=== PATIENT | female | born 1980 | race African-American/Black ===

== ENCOUNTER 2016-08-07 13:16 | Emergency (ER) | payer OTHER ==
[~2016-08-07] VITALS: Ht 180.3 cm; Wt 105.0 kg
[~2016-08-07 13:16] MED LIST: HYDR25TA5 PO; MULT-120 PO
[2016-08-07 13:18] VITALS: BP 168/105; PULSE 82; RESP 18; TEMP 97.7; O2SAT 96
--- NOTE | 2016-08-07 14:33 | PD ---
HPI Chief Complaint: Cold / Flu Symptoms Time Seen by Provider: 14:31 Travel History International Travel<30 days: No Contact w/Intl Traveler<30days: No Traveled to known affect area: No History of Present Illness HPI Patient is a 36-year-old female presenting to the emergency department for evaluation of cough, chest congestion, fevers. Some started on Friday. Her max temp was 103 yesterday. Patient has lupus, she recently discontinued medication for that, she is unsure of the name of it. She has no other complaints at this time, no abdominal pain, nausea, no vomiting, no headaches. PFSH Past Medical History Autoimmune Disease: Yes (LUPUS) Cancer: No Cardiovascular Problems: No COPD: Yes ("CHRONIC BRONCHITIS") Cerebrovascular Accident: No Diminished Hearing: No Endocrine: No Genitourinary: No Immune Disorder: Yes Musculoskeletal: No Neurologic: No Psychiatric: No Reproductive: Yes (OVARIAN POLYCYSTIC SYNDROME) Respiratory: Yes ("SEVERE BRONCHITIS") Migraines: No Seizures: No ?: Not Past Surgical History Abdominal Surgery: No Cardiac Surgery: No Ear Surgery: No Endocrine Surgery: No Eye Surgery: No Genitourinary Surgery: No Gynecologic Surgery: No Oral Surgery: Yes (TONSILLECTOMY) Thoracic Surgery: No Tonsillectomy: Yes Social History Alcohol Use: Yes (COUPLE TIMES PER WEEK) Tobacco Use: No Substance Use: No Allergies-Medications (Allergen,Severity, Reaction): Coded Allergies: Latex (Verified Adverse Reaction, Intermediate, HIVES, 08/07/16) Reported Meds & Prescriptions Reported Meds & Active Scripts Active Azithromycin 250 Mg Tab 250 Mg PO DIRECTED Take 2 tabs (500 mg) on day 1 then 1 tab daily x 4 days. Tessalon Perles (Benzonatate) 100 Mg Cap 200 Mg PO TID PRN 5 Days Hydrochlorothiazide 25 Mg Tab 25 Mg PO DAILY Reported Multivitamin Women (Multiple Vitamins W/ Minerals) 1 Tab Tab 1 Tab PO DAILY Review of Systems Except as stated in HPI: all other systems reviewed are Neg General / Constitutional: Positive: Fever, Chills HENT: Positive: Congestion Cardiovascular: No: Chest Pain or Discomfort Respiratory: Positive: Cough, No: Shortness of Breath, Wheezing Gastrointestinal: No: Nausea, Vomiting, Abdominal Pain Musculoskeletal: Positive: Myalgias Physical Exam Narrative GENERAL: Well-nourished, well-developed patient. SKIN: Warm and dry. HEAD: Normocephalic. EYES: No scleral icterus. No injection or drainage. ENT: Mucosa pink and moist. No erythema or exudates. No uvular edema. No uvular , palatal, or tonsillar deviation. Airway patent. Nasal turbinates appear normal without nasal blood, purulent drainage or septal hematoma. Cobblestone appearance to posterior pharynx. NECK: Supple, trachea midline. No JVD or lymphadenopathy. CARDIOVASCULAR: Regular rate and rhythm without murmurs, gallops, or rubs. RESPIRATORY: Breath sounds equal bilaterally, diminished in bases. No accessory muscle use. GASTROINTESTINAL: Abdomen soft, non-tender, nondistended. MUSCULOSKELETAL: No cyanosis, or edema. BACK: Nontender without obvious deformity. No CVA tenderness. Data Data Last Documented VS Vital Signs Date Time Temp Pulse Resp B/P Pulse Ox O2 Delivery O2 Flow Rate FiO2 08/07/16 13:18 97.7 82 18 168/105 96 Room Air Orders Chest, Pa & Lat (08/07/16 ) Influenzae A/B Antigen (08/07/16 14:31) MDM Medical Decision Making Medical Screen Exam Complete: Yes Emergency Medical Condition: Yes Interpretation(s) Vital Signs Date Time Temp Pulse Resp B/P Pulse Ox O2 Delivery O2 Flow Rate FiO2 08/07/16 13:18 97.7 82 18 168/105 96 Room Air Differential Diagnosis Bronchitis versus pneumonia versus viral URI versus other Narrative Course Patient is a 36-year-old female presenting to emergency evaluation of cough and fevers. Patient recently stopped medication for lupus. Patient is currently afebrile but due to possible immunocompromise state, a chest x-ray was ordered. Chest x-ray is negative for acute disease. Influenza is negative. Patient was encouraged to continue with symptomatic management. Patient was advised that it may take 2-3 more days for symptoms to resolve, she was encouraged to follow-up with her primary doctor or return to emergency department for any new or worsening symptoms. She will be given a prescription for a backup antibiotic however she was encouraged to continue watchful waiting. She was encouraged to complete full course of antibiotic if she did start. She verbalized understanding of discharge instructions. Patient is stable for discharge. Diagnosis Primary Impression: Upper respiratory infection Qualified Code: J06.9 - Viral upper respiratory tract infection Referrals: Primary Care Physician Patient Instructions: General Instructions, Upper Respiratory Infection (ED) Departure Forms: Tests/Procedures, Work Release Enter return to work date: Aug 08, 2016 Additional Instructions: Follow up with her primary doctor Continue with symptomatic management Take aoul-nek-xmiabph acetaminophen or ibuprofen as needed and as directed for pain and fevers If you begin antibiotics please complete the full course Return to emergency department for any new or worsening symptoms Med/Other Pt SpecificInfo: Prescription(s) given Scripts Azithromycin 250 Mg [id number] Mg PO DIRECTED #6 TAB Ref 0 Take 2 tabs (500 mg) on day 1 then 1 tab daily x 4 days. Prov:Liz Lennon 08/07/16 Benzonatate (Tessalon Perles)100 Mg [id number] Mg PO TID PRN (COUGH) 5 Days Ref 0 Prov:Liz Lennon 08/07/16 Disposition: 01 DISCHARGE HOME Condition: Stable Liz Lennon Aug 07, 2016 14:33
--- NOTE | 2016-08-07 16:17 | RADRPT ---
EXAM DATE/TIME: 08/07/2016 15:22 [facility] COMPARISON: CHEST SINGLE AP, June 07, 2016, 14:33. INDICATIONS : Cough. MEDICAL HISTORY : None. SURGICAL HISTORY : None. ENCOUNTER: Initial ACUITY: 3 days PAIN SCORE: 2/10 LOCATION: Bilateral chest FINDINGS: PA and lateral views of the chest demonstrate the lungs to be symmetrically aerated without evidence of mass, infiltrate or effusion. The cardiomediastinal contours are unremarkable. Osseous structure s are intact. CONCLUSION: No acute disease. Maximo Antony MD on August 07, 2016 at 16:14 Board Certified Radiologist. This report was verified electronically.
[2016-08-07] MEDS ORDERED: BENZ100 PO (16:28)
[2016-08-07] MEDS ORDERED: AZIT250T3 PO (16:28)
== END 2016-08-07 16:55 | disposition home or self-care (01) ==
LOC: NEPB 13:16
DX: J06.9 Acute upper respiratory infection, unspecified (principal)
CPT/HCPCS: 71020; 87804; 99283

== ENCOUNTER 2016-11-27 18:19 | Emergency (ER) | payer SELFPAY ==
[~2016-11-27] VITALS: Ht 177.8 cm; Wt 107.0 kg
[~2016-11-27 18:19] MED LIST changes: +AZIT250T3 PO; +BENZ100 PO
[2016-11-27 18:26] VITALS: BP 152/105; PULSE 78; RESP 16; TEMP 98.8; O2SAT 99
[2016-11-27 18:44] LABS: BLOOD, URINE LARGE (NEG); GLUCOSE,URINE NEG (NEG); KETONE, URINE NEG (NEG); NITRITE,URINE NEG (NEG); PH, URINE 6.5 (5.0-8.5)
[2016-11-27 18:48] LABS: URINE COLOR YELLOW (YELLW/STRAW)
[2016-11-27 18:49] LABS: COMMENT (UR) CULT NOT INDICATED; CULTURE IF INDICATED CULT NOT INDICATED; SQUAMOUS EPITHELIAL CELL URINE 0-5 /hpf (0-5)
[2016-11-27] MEDS ORDERED: PROV5TAB PO (18:51)
[2016-11-27] MEDS ORDERED: KETOROLAC TROMETHAMINE 30 MG/ML (IVP) VIAL IV PUSH ONE (19:15)
--- NOTE | 2016-11-27 19:18 | PD ---
HPI Chief Complaint: Complaint Time Seen by Provider: 18:59 Travel History International Travel<30 days: No Contact w/Intl Traveler<30days: No Traveled to known affect area: No History of Present Illness HPI This is a 36-year-old female who presents to the emergency department with 1 day of right flank pain, constant, sharp, stabbing, radiating into the right lower abdomen. She did have some blood in her urine but thought she was coming on her period. She denies any fevers or chills. She did have an episode of vomiting earlier today. She's never had a kidney stone before. PFSH Past Medical History Autoimmune Disease: Yes (LUPUS) Cancer: No Cardiovascular Problems: No COPD: Yes ("CHRONIC BRONCHITIS") Cerebrovascular Accident: No Diminished Hearing: No Endocrine: No Genitourinary: No Headaches: Yes Immune Disorder: Yes Musculoskeletal: No Neurologic: No Psychiatric: No Reproductive: Yes (OVARIAN POLYCYSTIC SYNDROME) Respiratory: Yes ("SEVERE BRONCHITIS") Migraines: No Seizures: No Influenza Vaccination: No ?: Not LMP: 11/14/16 Past Surgical History Abdominal Surgery: No Cardiac Surgery: No Ear Surgery: No Endocrine Surgery: No Eye Surgery: No Genitourinary Surgery: No Gynecologic Surgery: No Oral Surgery: Yes (TONSILLECTOMY) Thoracic Surgery: No Tonsillectomy: Yes Other Surgery: Yes Social History Alcohol Use: Yes (COUPLE TIMES PER WEEK) Tobacco Use: No Substance Use: No Allergies-Medications (Allergen,Severity, Reaction): Coded Allergies: Latex (Verified Adverse Reaction, Intermediate, HIVES, 11/27/16) Reported Meds & Prescriptions Reported Meds & Active Scripts Active Hydrochlorothiazide 25 Mg Tab 25 Mg PO DAILY Reported Provera (Medroxyprogesterone Acetate) 5 Mg Tab 5 Mg PO DAILY Start day 21 Review of Systems Except as stated in HPI: all other systems reviewed are Neg Physical Exam Narrative GENERAL:Well appearing, no acute distress SKIN: Focused skin assessment warm and dry. HEAD: Atraumatic. Normocephalic. EYES: Pupils equal and round. No injection or drainage. ENT: Moist mucous membranes NECK: Trachea midline. CARDIOVASCULAR: Regular rate and rhythm. No murmur appreciated. RESPIRATORY: Clear to auscultation. Breath sounds equal bilaterally. GASTROINTESTINAL: Abdomen soft, mildly diffusely tender to palpation with no rebound or guarding. : Right CVA tenderness MUSCULOSKELETAL: No obvious deformities. NEUROLOGICAL: Awake and alert. No obvious cranial nerve deficits. Moving all extremities. PSYCHIATRIC: Appropriate mood and affect; insight and judgment normal. Data Data Last Documented VS Vital Signs Date Time Temp Pulse Resp B/P Pulse Ox O2 Delivery O2 Flow Rate FiO2 11/27/16 20:00 77 16 149/87 96 Room Air 11/27/16 18:26 98.8 Orders Urinalysis - C+S If Indicated (11/27/16 18:33) Complete Blood Count With Diff (11/27/16 19:08) Comprehensive Metabolic Panel (11/27/16 19:08) Ed Urine Pregnancytest Poc (11/27/16 19:08) ^ Insert Iv (11/27/16 19:08) Ketorolac Inj (Toradol Inj) (11/27/16 19:15) Ct Abd/Pel W/O Iv Contrast (11/27/16 ) Sodium Chlor 0.9% 1000 Ml Inj (Ns 1000 M (11/27/16 19:30) Ondansetron Inj (Zofran Inj) (11/27/16 19:30) Hydromorphone Pf Inj (Dilaudid Pf Inj) (11/27/16 19:30) Labs Laboratory Tests Test 11/27/16 11/27/16 18:35 19:15 Urine Color YELLOW Urine Turbidity CLEAR Urine pH 6.5 Urine Specific [place] 1.020 Urine Protein NEG mg/dL Urine Glucose (UA) NEG mg/dL Urine Ketones NEG mg/dL Urine Occult Blood LARGE Urine Nitrite NEG Urine Bilirubin NEG Urine Leukocyte Esterase NEG Urine RBC 50-99 /hpf Urine WBC 3-5 /hpf Urine Squamous Epithelial 0-5 /hpf Cells Microscopic Urinalysis Comment CULT NOT INDICATED White Blood Count 13.5 TH/MM3 Red Blood Count 4.65 MIL/MM3 Hemoglobin 13.0 GM/DL Hematocrit 39.0 % Mean Corpuscular Volume 83.8 FL Mean Corpuscular Hemoglobin 27.9 PG Mean Corpuscular Hemoglobin 33.3 % Concent Red Cell Distribution Width 13.3 % Platelet Count 321 TH/MM3 Mean Platelet Volume 7.9 FL Neutrophils (%) (Auto) 73.0 % Lymphocytes (%) (Auto) 18.6 % Monocytes (%) (Auto) 4.5 % Eosinophils (%) (Auto) 0.4 % Basophils (%) (Auto) 3.5 % Neutrophils # (Auto) 9.8 TH/MM3 Lymphocytes # (Auto) 2.5 TH/MM3 Monocytes # (Auto) 0.6 TH/MM3 Eosinophils # (Auto) 0.1 TH/MM3 Basophils # (Auto) 0.5 TH/MM3 CBC Comment DIFF FINAL Differential Comment Sodium Level 139 MEQ/L Potassium Level 4.2 MEQ/L Chloride Level 105 MEQ/L Carbon Dioxide Level 27.0 MEQ/L Anion Gap 7 MEQ/L Blood Urea Nitrogen 7 MG/DL Creatinine 1.10 MG/DL Estimat Glomerular Filtration 68 ML/MIN Rate Random Glucose 104 MG/DL Calcium Level 8.8 MG/DL Total Bilirubin 0.3 MG/DL Aspartate Amino Transf 15 U/L (AST/SGOT) Alanine Aminotransferase 20 U/L (ALT/SGPT) Alkaline Phosphatase 49 U/L Total Protein 8.4 GM/DL Albumin 4.1 GM/DL [facility] Medical Decision Making Medical Screen Exam Complete: Yes Emergency Medical Condition: Yes Interpretation(s) Afebrile, no tachycardia, hypertensive Leukocytosis 73% neutrophils Electrolytes are reassuring Urinalysis: Blood in the urine CT abdomen and pelvis: 3 mm stone at the right UVJ with mild obstructive uropathy, 3 mm stone at the left UPJ with no hydronephrosis Differential Diagnosis Nephrolithiasis, pyelonephritis, ectopic , appendicitis Narrative Course This is a 36 year old female who presents to the emergency department with 1 day of right flank pain. She is placed on a monitor and an IV is established. Vital signs are reassuring. Labs demonstrate a mild leukocytosis. Urinalysis demonstrates blood but no infection. CT abdomen and pelvis demonstrates a 3 millimeter stone at the UVJ with some mild hydronephrosis likely the etiology of her pain. She also has 3 mm stone at the UPJ on the left. The stones have a high likelihood of passing without intervention. She will be discharged on pain control and antiemetics and referred to urology as needed. Diagnosis Primary Impression: Nephrolithiasis Referrals: Lee Macias MD Patient Instructions: General Instructions Additional Instructions: If you develop severe pain, inability to eat or drink, or fever return to the emergency department. Use a strainer to try to catch your stone. Take percocet as needed for pain, and continue taking zofran as needed for nausea. Complete your course of tamsulosin. Follow up with urology as soon as possible. Med/Other Pt SpecificInfo: Prescription(s) given Scripts Ondansetron Odt (Zofran Odt)4 Mg Tab4 Mg SL Q6HR PRN (Nausea/Vomiting) #10 TAB Ref 0 Prov:Pham Walker MD 11/27/16 Hydrocodone-Acetaminophen (Lortab)5-325 Mg Tab1 Tab PO Q6H PRN (PAIN) #10 TAB Ref 0 Prov:Pham Walker MD 11/27/16 Disposition: 01 DISCHARGE HOME Condition: Stable Pham Walker MD Nov 27, 2016 19:18
[2016-11-27 19:25] LABS: AUTOMATED NEUTROPHIL # 9.8 TH/MM3 (1.8-7.7); BASOPHIL # 0.5 TH/MM3 (0-0.2); BASOPHIL % 3.5 % (0.0-2.0); EOSINOPHIL # 0.1 TH/MM3 (0-0.4); EOSINOPHIL % 0.4 % (0.0-4.0); HEMO FLAGS DIFF FINAL; LYMPH % 18.6 % (9.0-44.0); LYMPHOCYTE # 2.5 TH/MM3 (1.0-4.8); MEAN CELL VOLUME 83.8 FL (80.0-100.0); MEAN CORPUSCULAR HEMOGLOBIN 27.9 PG (27.0-34.0); MEAN CORPUSCULAR HGB CONC 33.3 % (32.0-36.0); MONO % 4.5 % (0.0-8.0); PLATELET COUNT 321 TH/MM3 (150-450); RED BLOOD COUNT 4.65 MIL/MM3 (4.00-5.30); RED CELL DISTRIBUTION WIDTH 13.3 % (11.6-17.2); WHITE BLOOD COUNT 13.5 TH/MM3 (4.0-11.0)
[2016-11-27 19:27] VITALS: PULSE 80; O2SAT 96
[2016-11-27] MEDS ORDERED: SODIUM CHLOR 0.9% 1000 ML INJ 1,000 ML IV ONE (19:30)
[2016-11-27] MEDS ORDERED: ONDANSETRON HCL 4 MG/2 ML VIAL IV PUSH ONE (19:30)
[2016-11-27] MEDS ORDERED: HYDROmorphone HCL PF 1 MG/ML VIAL IV PUSH ONE (19:30)
[2016-11-27 19:37] LABS: CHLORIDE 105 MEQ/L (98-107); POTASSIUM 4.2 MEQ/L (3.5-5.1); SODIUM (NA) 139 MEQ/L (136-145)
[2016-11-27 19:41] LABS: ANION GAP 7 MEQ/L (5-15); BLOOD UREA NITROGEN 7 MG/DL (7-18)
[2016-11-27 19:44] LABS: ALT (GPT) 20 U/L (10-53); AST (GOT) 15 U/L (15-37); GLOMERULAR FILTRATION RATE 68 ML/MIN (>89)
[2016-11-27 19:45] LABS: TOTAL BILIRUBIN ADULT 0.3 MG/DL (0.2-1.0)
[2016-11-27 19:46] LABS: ALKALINE PHOSPHATASE 49 U/L (45-117)
[2016-11-27 20:00] VITALS: BP 149/87; PULSE 77; RESP 16; O2SAT 96
--- NOTE | 2016-11-27 20:03 | RADHPO ---
EXAM DATE/TIME: 11/27/2016 19:31 [facility] COMPARISON: No previous studies available for comparison. INDICATIONS : Patient complains of right flank pain. ORAL CONTRAST: No oral contrast ingested. RADIATION DOSE: 26.74 CTDIvol (mGy) MEDICAL HISTORY : Lupus. ovarian polycystic syndrome SURGICAL HISTORY : None. ENCOUNTER: Initial ACUITY: 1 day PAIN SCALE: 8/10 LOCATION: Right flank TECHNIQUE: Volumetric scanning of the abdomen and pelvis was performed. Using automated exposure control and ad justment of the mA and/or kV according to patient size, radiation dose was kept as low as reasonably achievable to obtain optimal diagnostic quality images. FINDINGS: LOWER LUNGS: The visualized lower lungs are clear. LIVER: Homogeneous density without lesion. There is no dilation of the biliary tree. No calcified gallston es. SPLEEN: Normal size without lesion. PANCREAS: Within normal limits. KIDNEYS: There is a 3 mm stone at the right ureterovesical junction causing mild hydronephrosis and hydrourete r. There is mild right perinephric edema. On the left, a 3 mm stone is seen at the left ureteropelvic junction region but without perceptible hydronephrosis. ADRENAL GLANDS: Within normal limits. VASCULAR: There is no aortic aneurysm. BOWEL/MESENTERY: The stomach, small bowel, and colon demonstrate no acute abnormality. There is no free intraperitone al air or fluid. ABDOMINAL WALL: Within normal limits. RETROPERITONEUM: There is no lymphadenopathy. BLADDER: No wall thickening or mass. REPRODUCTIVE: Multiple subcentimeter cysts are seen in both ovaries. No free fluid. INGUINAL: There is no lymphadenopathy or hernia. MUSCULOSKELETAL: No acute bony abnormality demonstrated. Mild degenerative changes are seen of the spine and both hips . CONCLUSION: 1. 3 mm stone of the right ureterovesical junction causing mild obstructive uropathy. The stone is vi sible on the initial kitchen designer radiograph but there are multiple similar sized phleboliths in the adjacen t pelvic cavity. 2. There is a 3 mm stone of the left ureteropelvic junction region but without associated hydronephro sis. Maximo Mcdonald MD on November 27, 2016 at 19:58 Board Certified Radiologist. This report was verified electronically.
[2016-11-27] MEDS ORDERED: HYDR-3533 PO (20:11)
[2016-11-27] MEDS ORDERED: ZOFR4TAB3 SL (20:11)
== END 2016-11-27 20:31 | disposition home or self-care (01) ==
LOC: PHED 18:19
DX: N20.0 Calculus of kidney (principal); M32.9 Systemic lupus erythematosus, unspecified; J44.9 Chronic obstructive pulmonary disease, unspecified
CPT/HCPCS: 74176; 80053; 81001; 84703; 85025; 96361; 96374; 96375; 99285; J1170; J1885; J2405; J7030

== ENCOUNTER 2017-01-11 13:20 | Emergency (ER) | payer OTHER ==
[~2017-01-11] VITALS: Ht 177.8 cm; Wt 105.2 kg
[~2017-01-11 13:20] MED LIST changes: -AZIT250T3 PO; -BENZ100 PO; +HYDR-3533 PO; -MULT-120 PO; +PROV5TAB PO; +ZOFR4TAB3 SL
[2017-01-11 13:44] VITALS: BP 165/102; PULSE 88; RESP 18; TEMP 97.9; O2SAT 98
--- NOTE | 2017-01-11 13:55 | PD ---
HPI Chief Complaint: Fall Time Seen by Provider: 13:41 Travel History International Travel<30 days: No Contact w/Intl Traveler<30days: No Traveled to known affect area: No History of Present Illness HPI The patient is a 36-year-old female who presents to the emergency department for right shoulder pain. The patient states she fell last night while vacuuming on landed on her right shoulder. The patient complains of pain located over the lateral and superior aspect of the right shoulder that is worse with movement such as abduction and extension of the right upper extremity. 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 She denies any head injury or neck injury with the fall. She is right- hand dominant. She denies any numbness or tingling of the right upper extremity. Symptoms are mild to moderate, exacerbated after falling, and there are no current alleviating factors. PFSH Past Medical History Autoimmune Disease: Yes (LUPUS) Cancer: No Cardiovascular Problems: No COPD: Yes ("CHRONIC BRONCHITIS") Cerebrovascular Accident: No Diminished Hearing: No Endocrine: No Genitourinary: No Headaches: Yes Immune Disorder: Yes Musculoskeletal: No Neurologic: No Psychiatric: No Reproductive: Yes (PCOS) Respiratory: Yes ("SEVERE BRONCHITIS") Migraines: No Seizures: No ?: Not Past Surgical History Abdominal Surgery: No Cardiac Surgery: No Ear Surgery: No Endocrine Surgery: No Eye Surgery: No Genitourinary Surgery: No Gynecologic Surgery: No Oral Surgery: Yes Thoracic Surgery: No Tonsillectomy: Yes Other Surgery: Yes Social History Alcohol Use: Yes (COUPLE TIMES PER WEEK) Tobacco Use: No Substance Use: No Allergies-Medications (Allergen,Severity, Reaction): Coded Allergies: Latex (Verified Allergy, Intermediate, HIVES, 01/11/17) Reported Meds & Prescriptions Reported Meds & Active Scripts Active No Active Prescriptions or Reported Medications Review of Systems Except as stated in HPI: all other systems reviewed are Neg HENT: No: Headaches, Neck Pain Musculoskeletal: Positive: Limited ROM, Pain Neurologic: No: Paresthesia, Sensory Disturbance Physical Exam Narrative GENERAL: Awake, alert, pleasant 36-year-old female who appears her stated age and is in no acute respiratory distress. SKIN: Focused skin assessment warm/dry. HEAD: Atraumatic. Normocephalic. EYES: Pupils equal and round. No scleral icterus. No injection or drainage. ENT: No nasal bleeding or discharge. Mucous membranes pink and moist. NECK: Trachea midline. No JVD. MUSCULOSKELETAL: No obvious deformities. Positive right radial pulse. The patient is able to flex and extend the right wrist. Intrinsic hand muscles on the right are intact. Patient is able to supinate and pronate the right forearm. The patient is able flex and extend the right elbow. Patient has difficulty with abduction and extension of the right shoulder secondary to pain. Tenderness noted over the acromioclavicular joint and lateral aspect of the right shoulder. No tenderness over the mid to proximal right clavicle. NEUROLOGICAL: Awake and alert. No obvious cranial nerve deficits. Motor grossly within normal limits. Normal speech. Sensation is intact to the radial , median, and ulnar distribution of the right upper extremity. PSYCHIATRIC: Appropriate mood and affect; insight and judgment normal. Data Data Last Documented VS Vital Signs Date Time Temp Pulse Resp B/P Pulse Ox O2 Delivery O2 Flow Rate FiO2 01/11/17 13:44 97.9 88 18 165/102 98 Orders Shoulder, Limited(2vws) (01/11/17 ) Ibuprofen (Advil) (01/11/17 14:00) Splint Or Brace Apply/Monitor (01/11/17 15:04) MDM Medical Decision Making Medical Screen Exam Complete: Yes Emergency Medical Condition: Yes Medical Record Reviewed: Yes Interpretation(s) X-ray of the right shoulder reveals no acute disease Differential Diagnosis Differential diagnosis includes fracture, dislocation, contusion, sprain, strain , rotator cuff injury, acromioclavicular separation. Narrative Course An x-ray of the right shoulder was obtained. The patient was administered ibuprofen 600 mg orally for pain. X-rays negative for fracture and dislocation. The patient will be placed in a sling as needed for comfort, however, is advised to take the arm out of the sling and to perform range of motion exercises, activity as tolerated, and Motrin as needed for pain. Diagnosis Primary Impression: Right shoulder pain Qualified Code: M25.511 - Acute pain of right shoulder Patient Instructions: General Instructions Additional Instructions: Sling as needed for comfort. Range of motion exercises to the right upper extremity. Ice and/or heat to the affected shoulder. Activity as tolerated. Work excuse for 2 days. Please provide the patient a copy of her x-ray results at discharge. Med/Other Pt SpecificInfo: Prescription(s) given Scripts Ibuprofen 600 Mg [id number] Mg PO Q6H PRN (Pain/Inflammation) #20 TAB Ref 0 Prov:Soham Polanco MD 01/11/17 Disposition: 01 DISCHARGE HOME Condition: Stable Soham Polanco MD Jan 11, 2017 13:55
[2017-01-11] MEDS ORDERED: IBUPROFEN 200 MG TAB PO ONE (14:00)
--- NOTE | 2017-01-11 15:05 | RADRPT ---
EXAM DATE/TIME: 01/11/2017 14:49 [facility] COMPARISON: No previous studies available for comparison. INDICATIONS : Right shoulder pain from fall MEDICAL HISTORY : None. SURGICAL HISTORY : None. ENCOUNTER: Initial ACUITY: 2 days PAIN SCORE: 8/10 LOCATION: Right shoulder FINDINGS: Two view examination of the right shoulder demonstrates no evidence of fracture or dislocation. The glenohumeral and acromioclavicular joints are maintained. Bony mineralization is normal. CONCLUSION: No acute disease. Gabe Faye MD on January 11, 2017 at 15:03 Board Certified Radiologist. This report was verified electronically.
[2017-01-11] MEDS ORDERED: IBUP-232 PO (15:08)
[2017-01-11 15:26] VITALS: BP 152/96
== END 2017-01-11 15:27 | disposition home or self-care (01) ==
LOC: PHEFT 13:20
DX: M25.511 Pain in right shoulder (principal); Z86.2 Personal history of diseases of the blood and blood-forming organs and certain disorders involving the immune mechanism; Z87.09 Personal history of other diseases of the respiratory system; Z87.42 Personal history of other diseases of the female genital tract; W18.39XA Other fall on same level, initial encounter; Y93.E3 Activity, vacuuming
CPT/HCPCS: 73030; 99283

== ENCOUNTER 2017-03-06 11:21 | Emergency (ER) | payer OTHER ==
[~2017-03-06] VITALS: Ht 177.8 cm; Wt 107.0 kg
[~2017-03-06 11:21] MED LIST changes: -HYDR-3533 PO; -HYDR25TA5 PO; +IBUP-232 PO; -PROV5TAB PO; -ZOFR4TAB3 SL
[2017-03-06 11:22] VITALS: BP 185/112; PULSE 79; RESP 14; TEMP 97.9; O2SAT 98
--- NOTE | 2017-03-06 11:28 | PD ---
Physical Exam Date Seen by Provider: Mar 06, 2017 Time Seen by Provider: 11:26 Narrative 36-year-old female with history of lupus presents emergency Department with sudden onset migraine. Patient has taken 2 of her Imitrex already. She is nauseous. Her pain is now 9 out of 10. She is allergic to latex. Vital signs are stable, although blood pressure is elevated. Patient is awaiting bed placement. Data Data Last Documented VS Vital Signs Date Time Temp Pulse Resp B/P (MAP) Pulse Ox O2 Delivery O2 Flow Rate FiO2 03/06/17 11:22 97.9 79 14 185/112 (136) 98 MDM Medical Record Reviewed: Yes Supervised Visit with SERA: Yes Jake Thapa Mar 06, 2017 11:28
[2017-03-06] MEDS ORDERED: FENO1TAB46 PO (12:17)
[2017-03-06 12:22] VITALS: BP 180/101; PULSE 72; RESP 16
[2017-03-06] MEDS ORDERED: HYDR25TA5 PO (12:25)
[2017-03-06] MEDS ORDERED: diphenhydrAMINE HCL 50 MG/ML VIAL IVP ONE (12:30)
[2017-03-06] MEDS ORDERED: KETOROLAC TROMETHAMINE 30 MG/ML (IVP) VIAL IVP ONE (12:30)
[2017-03-06] MEDS ORDERED: PROCHLORPERAZINE INJ 10 MG/2 ML VIAL IVP ONE (12:30)
[2017-03-06] MEDS ORDERED: SODIUM CHLORIDE 0.9% FLUSH 10 ML FLUSH IVF PRN (12:30)
[2017-03-06 12:45] VITALS: BP 170/98; PULSE 73
--- NOTE | 2017-03-06 13:06 | PD ---
HPI Chief Complaint: Headache Time Seen by Provider: 12:18 Travel History International Travel<30 days: No Contact w/Intl Traveler<30days: No Traveled to known affect area: No History of Present Illness HPI Patient is a 36-year-old female presenting to emergency evaluation of a migraine. Patient states it's been ongoing for 3-4 days, she reports photophobia, nausea, vomiting twice this morning. She states the pain is frontal and states it's a 7 out of 10 and pulsating. She reports a history of migraines which are usually relieved with Excedrin Migraine but patient states this has been ineffective. She has not taken any Imitrex as stated on the previous report. PFSH Past Medical History Autoimmune Disease: Yes (LUPUS) Cancer: No Cardiovascular Problems: No COPD: Yes ("CHRONIC BRONCHITIS") Cerebrovascular Accident: No Diminished Hearing: No Endocrine: No Genitourinary: No Headaches: Yes Hypertension: Yes Medical other: Yes (Lupus) Musculoskeletal: No Neurologic: No Psychiatric: No Reproductive: Yes (PCOS) Migraines: Yes Seizures: No Tetanus Vaccination: < 5 Years ?: Unknown LMP: STATES "MY DR HAS ME ON PROVERA TO IM VERY IRREGULAR" Past Surgical History Abdominal Surgery: No Cardiac Surgery: No Ear Surgery: No Endocrine Surgery: No Eye Surgery: No Genitourinary Surgery: No Gynecologic Surgery: No Oral Surgery: Yes Thoracic Surgery: No Tonsillectomy: Yes Other Surgery: Yes Social History Alcohol Use: No Tobacco Use: No Substance Use: No Allergies-Medications (Allergen,Severity, Reaction): Coded Allergies: latex (Unverified Allergy, Intermediate, HIVES, 03/06/17) Reported Meds & Prescriptions Reported Meds & Active Scripts Active Amlodipine (Amlodipine Besylate) 5 Mg Tab 5 Mg PO DAILY Ibuprofen 600 Mg Tab 600 Mg PO Q6H PRN Reported Hydrochlorothiazide 25 Mg Tab 25 Mg PO DAILY Fenofibrate 40 Mg Tab 40 Mg PO DAILY Review of Systems Except as stated in HPI: all other systems reviewed are Neg Eyes: Positive: Photophobia, No: Visual changes HENT: Positive: Headaches Gastrointestinal: Positive: Nausea, Vomiting Musculoskeletal: No: Myalgias Neurologic: Positive: Headache, No: Weakness, Dizziness, Focal Abnormalities, Change in Mentation Physical Exam Narrative GENERAL: Well-developed, well-nourished, alert female. Resting comfortably in no acute distress. SKIN: Warm and dry. HEAD: Atraumatic. Normocephalic. Tenderness to palpation of the ethmoid and maxillary sinuses. EYES: Pupils equal and round. No scleral icterus. No injection or drainage. She ocular movements are intact. ENT: No nasal bleeding or discharge. Mucous membranes pink and moist. NECK: Trachea midline. No JVD. CARDIOVASCULAR: Regular rate and rhythm. RESPIRATORY: No accessory muscle use. Clear to auscultation. Breath sounds equal bilaterally. GASTROINTESTINAL: Abdomen soft, non-tender, nondistended. Hepatic and splenic margins not palpable. MUSCULOSKELETAL: Extremities without clubbing, cyanosis, or edema. No obvious deformities. NEUROLOGICAL: Awake and alert. No obvious cranial nerve deficits. Motor grossly within normal limits. Five out of 5 muscle strength in the arms and legs. Normal speech. PSYCHIATRIC: Appropriate mood and affect; insight and judgment normal. Data Data Last Documented VS Vital Signs Date Time Temp Pulse Resp B/P (MAP) Pulse Ox O2 Delivery O2 Flow Rate FiO2 03/06/17 12:22 72 16 180/101 (127) 03/06/17 11:[address] Brain W/O Iv Contrast(Rout) (03/06/17 ) Ecg Monitoring (03/06/17 12:23) Iv Access Insert/Monitor (03/06/17 12:23) Oximetry (03/06/17 12:23) Sodium Chloride 0.9% Flush (Ns Flush) (03/06/17 12:30) Ketorolac Inj (Toradol Inj) (03/06/17 12:30) Prochlorperazine Inj (Compazine Inj) (03/06/17 12:30) Diphenhydramine Inj (Benadryl Inj) (03/06/17 12:30) MDM Medical Decision Making Medical Screen Exam Complete: Yes Emergency Medical Condition: Yes Medical Record Reviewed: Yes Interpretation(s) Vital Signs Date Time Temp Pulse Resp B/P (MAP) Pulse Ox O2 Delivery O2 Flow Rate FiO2 03/06/17 12:22 72 16 180/101 (127) 03/06/17 11:22 97.9 79 14 185/112 (136) 98 Differential Diagnosis Acute sinusitis versus migraine versus hemorrhage versus other Narrative Course Patient's 36-year-old female that presented to emergency evaluation of a migraine headache that started 3-4 days ago was unrelieved by Excedrin which normally works for her. Patient was mildly hypertensive on arrival, she was on HCTZ but ran out of her medications 6 weeks ago. Medications and imaging were ordered and pending. 1445 patient reassessed, she reports improvement in her symptoms. CT scan of the brain that was read by the radiologist shows no acute disease. Patient will be discharged home. She'll be given a prescription for amlodipine, she is encouraged to follow-up with a primary doctor or at the [facility] for management of her hypertension. She is encouraged to return to emergency department for any new or worsening symptoms. Patient verbalized understanding of instructions. Patient is stable for discharge. Diagnosis Primary Impression: Migraine headache Qualified Codes: G43.909 - Migraine, unspecified, not intractable, without status migrainosus Additional Impression: Hypertension Qualified Codes: I10 - Essential (primary) hypertension Referrals: [facility] Primary Care Physician Patient Instructions: General Instructions, Hypertension (ED), Migraine Headache (ED) Departure Forms: Tests/Procedures, Work Release Enter return to work date: Mar 08, 2017 Additional Instructions: Establish care with a primary doctor or at the [facility] Return to emergency department for any new or worsening symptoms Take medications as directed Med/Other Pt SpecificInfo: Prescription(s) given Scripts Amlodipine (Amlodipine) 5 Mg Tab 5 MG PO DAILY for Blood Pressure Management, #30 TAB 0 Refills Prov: Liz Lennon 03/06/17 Disposition: 01 DISCHARGE HOME Condition: Stable Liz Lennon Mar 06, 2017 13:06
--- NOTE | 2017-03-06 14:40 | RADRPT ---
EXAM DATE/TIME: 03/06/2017 14:05 [place] COMPARISON: No previous studies available for comparison. INDICATIONS : Headache RADIATION DOSE: 56.35 CTDIvol (mGy) MEDICAL HISTORY : Hypertension. Chronic obstructive pulmonary disease. SURGICAL HISTORY : None. ENCOUNTER: Initial ACUITY: 1 day PAIN SCALE: 8/10 LOCATION: cranial TECHNIQUE: Multiple contiguous axial images were obtained of the head. Using automated exposure control and adj ustment of the mA and/or kV according to patient size, radiation dose was kept as low as reasonably a chievable to obtain optimal diagnostic quality images. DICOM format image data is available electro nically for review and comparison. FINDINGS: CEREBRUM: The ventricles are normal for age. No evidence of midline shift, mass lesion, hemorrhage or acute in farction. No extra-axial fluid collections are seen. POSTERIOR FOSSA: The cerebellum and brainstem are intact. The 4th ventricle is midline. The cerebellopontine angle i s unremarkable. EXTRACRANIAL: The visualized portion of the orbits is intact. SKULL: The calvaria is intact. No evidence of skull fracture. CONCLUSION: 1. No acute intracranial abnormalities. Anthony Barakat MD on March 06, 2017 at 14:35 Board Certified Radiologist. This report was verified electronically.
[2017-03-06] MEDS ORDERED: AMLO5TAB2 PO (14:47)
[2017-03-06 14:55] VITALS: BP 138/80
== END 2017-03-06 15:05 | disposition home or self-care (01) ==
LOC: NEPD 11:21
DX: G43.909 Migraine, unspecified, not intractable, without status migrainosus (principal); I10 Essential (primary) hypertension; M32.9 Systemic lupus erythematosus, unspecified
CPT/HCPCS: 70450; 96374; 96375; 99285; J0780; J1200; J1885

== ENCOUNTER 2017-04-18 11:58 | Emergency (ER) | payer OTHER ==
[~2017-04-18] VITALS: Ht 177.8 cm; Wt 100.0 kg
[~2017-04-18 11:58] MED LIST changes: +AMLO5TAB2 PO; +FENO1TAB46 PO; +HYDR25TA5 PO
[2017-04-18 12:02] VITALS: BP 166/107; PULSE 77; RESP 15; TEMP 98.5; O2SAT 98
[2017-04-18] MEDS ORDERED: ACETAMIN 325 MG/BUTALBITAL 50 MG/CAFFEINE 40 MG TAB PO ONE (12:30)
[2017-04-18] MEDS ORDERED: AMLO5TAB2 PO (13:03)
--- NOTE | 2017-04-18 13:03 | PD ---
HPI Chief Complaint: Headache Time Seen by Provider: 12:17 Travel History International Travel<30 days: No Contact w/Intl Traveler<30days: No Traveled to known affect area: No History of Present Illness HPI 36-year-old female presents to the emergency room for evaluation of frontal headache for the past 2 days. Patient states she wakes up with headache that is throbbing in nature. She tried to go to work today but the pain was too severe. Patient states it is made worse by staring at the computer screen all day. She took Excedrin yesterday which mildly relieved symptoms. Localized to the forehead region without radiation. Not the worse headache of her life. She has associated photophobia, nausea, without vomiting. Denies focal neurological deficits. She has history of hypertension but has not had her medications filled in the past few months. She does not have insurance or PCP at this time. Denies trauma or injury to the head. PFSH Past Medical History Autoimmune Disease: Yes (LUPUS) Cancer: No Cardiovascular Problems: No COPD: Yes ("CHRONIC BRONCHITIS") Cerebrovascular Accident: No Diminished Hearing: No Endocrine: No Gastrointestinal Disorders: No Genitourinary: No Headaches: Yes Hypertension: Yes Immune Disorder: Yes Musculoskeletal: No Neurologic: No Psychiatric: No Reproductive: Yes (PCOS) Respiratory: Yes ("SEVERE BRONCHITIS") Migraines: Yes Seizures: No Tetanus Vaccination: < 5 Years Influenza Vaccination: No ?: Not Past Surgical History Abdominal Surgery: No Cardiac Surgery: No Ear Surgery: No Endocrine Surgery: No Eye Surgery: No Genitourinary Surgery: No Gynecologic Surgery: No Oral Surgery: Yes Thoracic Surgery: No Tonsillectomy: Yes Other Surgery: Yes Social History Alcohol Use: No Tobacco Use: No Substance Use: No Allergies-Medications (Allergen,Severity, Reaction): Coded Allergies: latex (Unverified Allergy, Intermediate, HIVES, 04/18/17) Reported Meds & Prescriptions Reported Meds & Active Scripts Active Amlodipine (Amlodipine Besylate) 5 Mg Tab 5 Mg PO DAILY Ibuprofen 600 Mg Tab 600 Mg PO Q6H PRN Reported Hydrochlorothiazide 25 Mg Tab 25 Mg PO DAILY Fenofibrate 40 Mg Tab 40 Mg PO DAILY Review of Systems Except as stated in HPI: all other systems reviewed are Neg Physical Exam Narrative GENERAL: Well-nourished, well-developed female in no acute distress. Afebrile. Ambulatory. SKIN: Focused skin assessment warm/dry. HEAD: Normocephalic. EYES: No scleral icterus. No injection or drainage. NECK: Supple, trachea midline. No JVD or lymphadenopathy. CARDIOVASCULAR: Regular rate and rhythm without murmurs, gallops, or rubs. RESPIRATORY: Breath sounds equal bilaterally. No accessory muscle use. NEUROLOGICAL: Awake and alert. Cranial nerves II through XII intact. Motor and sensory grossly within normal limits. Five out of 5 muscle strength in all muscle groups. Normal speech. Data Data Last Documented VS Vital Signs Date Time Temp Pulse Resp B/P (MAP) Pulse Ox O2 Delivery O2 Flow Rate FiO2 04/18/17 12:02 98.5 77 15 166/107 (126) 98 Orders Orders Dgif-Uxxyb-Juzx 325-50-40 Mg (Fioricet 3 (04/18/17 12:30) MDM Medical Decision Making Medical Screen Exam Complete: Yes Emergency Medical Condition: Yes Medical Record Reviewed: Yes Differential Diagnosis Migraine, headache, lupus exacerbation, hypertensive urgency Narrative Course 36-year-old female presents to the emergency room for evaluation of frontal headache for the past 2 days. She has associated photophobia and nausea. Denies trauma or injury. Not the worst headache of her life. She does not appear to be in any distress. Sitting upright in a bright room and playing on her phone. No focal neurological deficits. Full range of motion of the neck. She had a CT of her head a little over 1 month ago that was normal. She was given Fioricet in the ED. History of hypertension that is uncontrolled because of patient's inability to fill medications. Slightly hypertensive here. She' ll be given a refill of her amlodipine. Given [facility] to [facility] with. She will return for worsening symptoms. Diagnosis Primary Impression: Acute headache Qualified Codes: G44.209 - Tension-type headache, unspecified, not intractable Referrals: Primary Care Physician Additional Instructions: Rest and drink plenty of fluids. Take Excedrin with food as directed, as needed for pain. Follow-up with a primary care physician. Return to the emergency room for worsening symptoms. Med/Other Pt SpecificInfo: Prescription(s) given Disposition: 01 DISCHARGE HOME Condition: Stable Danisha Rogers Apr 18, 2017 13:02
[2017-04-18 13:21] VITALS: BP 177/107; PULSE 87; RESP 16; O2SAT 98
== END 2017-04-18 14:03 | disposition home or self-care (01) ==
LOC: NEPD 11:58
DX: R51 Headache (principal); H53.149 Visual discomfort, unspecified; R11.0 Nausea; M32.9 Systemic lupus erythematosus, unspecified; J44.9 Chronic obstructive pulmonary disease, unspecified; I10 Essential (primary) hypertension; E28.2 Polycystic ovarian syndrome; Z79.899 Other long term (current) drug therapy
CPT/HCPCS: 99283

== ENCOUNTER 2017-09-07 10:18 | Emergency (ER) | payer OTHER ==
[~2017-09-07] VITALS: Ht 177.8 cm; Wt 105.0 kg
[2017-09-07 10:22] VITALS: BP 166/104; PULSE 85; RESP 18; TEMP 98.2; O2SAT 95
[2017-09-07] MEDS ORDERED: diphenhydrAMINE HCL 50 MG/ML VIAL IV PUSH ONE (11:45)
[2017-09-07] MEDS ORDERED: KETOROLAC TROMETHAMINE 30 MG/ML (IVP) VIAL IV PUSH ONE (11:45)
[2017-09-07] MEDS ORDERED: PROCHLORPERAZINE INJ 10 MG/2 ML VIAL IV PUSH ONE (11:45)
[2017-09-07] MEDS ORDERED: SODIUM CHLOR 0.9% 1000 ML INJ 1,000 ML IV ONE (11:45)
[2017-09-07 12:20] LABS: AUTOMATED NEUTROPHIL # 3.3 TH/MM3 (1.8-7.7); BASOPHIL # 0.1 TH/MM3 (0-0.2); BASOPHIL % 1.1 % (0.0-2.0); EOSINOPHIL # 0.3 TH/MM3 (0-0.4); EOSINOPHIL % 3.8 % (0.0-4.0); HEMATOCRIT 35.9 % (35.0-46.0); HEMOGLOBIN 11.9 GM/DL (11.6-15.3); LYMPH % 39.3 % (9.0-44.0); LYMPHOCYTE # 2.6 TH/MM3 (1.0-4.8); MEAN CORPUSCULAR HEMOGLOBIN 28.3 PG (27.0-34.0); MEAN CORPUSCULAR HGB CONC 33.3 % (32.0-36.0); MEAN PLATELET VOLUME 8.2 FL (7.0-11.0); MONO % 5.5 % (0.0-8.0); MONOCYTE # 0.4 TH/MM3 (0-0.9); NEUT % 50.3 % (16.0-70.0); PLATELET COUNT 328 TH/MM3 (150-450); RED BLOOD COUNT 4.22 MIL/MM3 (4.00-5.30); RED CELL DISTRIBUTION WIDTH 14.4 % (11.6-17.2); WHITE BLOOD COUNT 6.6 TH/MM3 (4.0-11.0)
[2017-09-07 12:43] LABS: ALBUMIN 3.7 GM/DL (3.4-5.0); AST (GOT) 19 U/L (15-37); BICARBONATE 30.6 MEQ/L (21.0-32.0); BLOOD UREA NITROGEN 8 MG/DL (7-18); CALCIUM 8.5 MG/DL (8.5-10.1); CHLORIDE 105 MEQ/L (98-107); CREATININE 0.69 MG/DL (0.50-1.00); GLOMERULAR FILTRATION RATE 116 ML/MIN (>89); GLUCOSE,RANDOM 101 MG/DL (74-106); SODIUM (NA) 141 MEQ/L (136-145)
[2017-09-07 12:46] LABS: ALKALINE PHOSPHATASE 44 U/L (45-117); ALT (GPT) 20 U/L (10-53); TOTAL BILIRUBIN ADULT 0.3 MG/DL (0.2-1.0); TOTAL PROTEIN 7.6 GM/DL (6.4-8.2)
[2017-09-07] MEDS ORDERED: BUTA1CAP PO (13:22)
[2017-09-07] MEDS ORDERED: AMLO5TAB2 PO (13:22)
--- NOTE | 2017-09-07 13:23 | PD ---
HPI Chief Complaint: Headache Time Seen by Provider: 11:29 Travel History International Travel<30 days: No Contact w/Intl Traveler<30days: No Traveled to known affect area: No History of Present Illness HPI Patient is a 37-year-old female comes in complaining of a headache. She says she has had a headache since yesterday. She is tried taking Excedrin without relief of her pain. She has history of headaches, but says this 1 feels a little worse. She has had some nausea and vomiting. She denies fever chills. She denies any head injury. She does report having a nosebleed yesterday. She says usually gets these headaches when she is out of her blood pressure medication which she has been out of for the past 2 days. She takes amlodipine 5 mg. Severity is moderate. PFSH Past Medical History Autoimmune Disease: Yes (LUPUS) Cancer: No Cardiovascular Problems: No COPD: Yes ("CHRONIC BRONCHITIS") Cerebrovascular Accident: No Diminished Hearing: No Endocrine: No Gastrointestinal Disorders: No Genitourinary: No Headaches: Yes Hypertension: Yes Immune Disorder: Yes Implanted Vascular Access Dvce: No Musculoskeletal: No Neurologic: No Psychiatric: No Reproductive: Yes (PCOS) Respiratory: Yes ("SEVERE BRONCHITIS") Migraines: Yes Seizures: No ?: Not LMP: 08/10/16 Past Surgical History Abdominal Surgery: No Cardiac Surgery: No Ear Surgery: No Endocrine Surgery: No Eye Surgery: No Genitourinary Surgery: No Gynecologic Surgery: No Neurologic Surgery: No Oral Surgery: Yes Thoracic Surgery: No Tonsillectomy: Yes Other Surgery: Yes Social History Alcohol Use: Yes (occu) Tobacco Use: No Substance Use: No Allergies-Medications (Allergen,Severity, Reaction): Coded Allergies: latex (Unverified Allergy, Intermediate, HIVES, 04/18/17) Reported Meds & Prescriptions Reported Meds & Active Scripts Active Amlodipine (Amlodipine Besylate) 5 Mg Tab 5 Mg PO DAILY Ibuprofen 600 Mg Tab 600 Mg PO Q6H PRN Reported Hydrochlorothiazide 25 Mg Tab 25 Mg PO DAILY Fenofibrate 40 Mg Tab 40 Mg PO DAILY Review of Systems Except as stated in HPI: all other systems reviewed are Neg General / Constitutional: No: Fever, Chills Eyes: No: Blurred Vision HENT: Positive: Headaches Cardiovascular: No: Chest Pain or Discomfort Respiratory: No: Shortness of Breath Gastrointestinal: Positive: Nausea, Vomiting, No: Abdominal Pain Musculoskeletal: No: Myalgias, Edema Skin: No Rash, No Change in Pigmentation Neurologic: No: Dizziness Physical Exam Narrative GENERAL: Awake and alert, in no acute distress. SKIN: Focused skin assessment warm/dry. HEAD: Atraumatic. Normocephalic. EYES: Pupils equal and round and reactive. No scleral icterus. EOMI. ENT: Mucous membranes pink and moist. NECK: Trachea midline. No JVD. CARDIOVASCULAR: Regular rate and rhythm. No murmur appreciated. RESPIRATORY: No accessory muscle use. Clear to auscultation. Breath sounds equal bilaterally. GASTROINTESTINAL: Abdomen soft, non-tender, nondistended. MUSCULOSKELETAL: No obvious deformities. No clubbing. No cyanosis. No edema. NEUROLOGICAL: Awake and alert. No obvious cranial nerve deficits. Motor grossly within normal limits. Normal speech. PSYCHIATRIC: Appropriate mood and affect; insight and judgment normal. Data Data Last Documented VS Vital Signs Date Time Temp Pulse Resp B/P (MAP) Pulse Ox O2 Delivery O2 Flow Rate FiO2 09/07/17 10:22 98.2 85 18 166/104 (124) 95 Orders Orders Iv Access Insert/Monitor (09/07/17 11:39) Complete Blood Count With Diff (09/07/17 11:39) Comprehensive Metabolic Panel (09/07/17 11:39) Prochlorperazine Inj (Compazine Inj) (09/07/17 11:45) Diphenhydramine Inj (Benadryl Inj) (09/07/17 11:45) Ketorolac Inj (Toradol Inj) (09/07/17 11:45) Sodium Chlor 0.9% 1000 Ml Inj (Ns 1000 M (09/07/17 11:45) Labs Laboratory Tests Test 09/07/17 11:52 White Blood Count 6.6 TH/MM3 Red Blood Count 4.22 MIL/MM3 Hemoglobin 11.9 GM/DL Hematocrit 35.9 % Mean Corpuscular Volume 85.0 FL Mean Corpuscular Hemoglobin 28.3 PG Mean Corpuscular Hemoglobin Concent 33.3 % Red Cell Distribution Width 14.4 % Platelet Count 328 TH/MM3 Mean Platelet Volume 8.2 FL Neutrophils (%) (Auto) 50.3 % Lymphocytes (%) (Auto) 39.3 % Monocytes (%) (Auto) 5.5 % Eosinophils (%) (Auto) 3.8 % Basophils (%) (Auto) 1.1 % Neutrophils # (Auto) 3.3 TH/MM3 Lymphocytes # (Auto) 2.6 TH/MM3 Monocytes # (Auto) 0.4 TH/MM3 Eosinophils # (Auto) 0.3 TH/MM3 Basophils # (Auto) 0.1 TH/MM3 CBC Comment DIFF FINAL Differential Comment Blood Urea Nitrogen 8 MG/DL Creatinine 0.69 MG/DL Random Glucose 101 MG/DL Total Protein 7.6 GM/DL Albumin 3.7 GM/DL Calcium Level 8.5 MG/DL Alkaline Phosphatase 44 U/L Aspartate Amino Transf (AST/SGOT) 19 U/L Alanine Aminotransferase (ALT/SGPT) 20 U/L Total Bilirubin 0.3 MG/DL Sodium Level 141 MEQ/L Potassium Level 3.8 MEQ/L Chloride Level 105 MEQ/L Carbon Dioxide Level 30.6 MEQ/L Anion Gap 5 MEQ/L Estimat Glomerular Filtration Rate 116 ML/MIN [facility] Medical Decision Making Medical Screen Exam Complete: Yes Emergency Medical Condition: Yes Medical Record Reviewed: Yes Differential Diagnosis Migraine headache versus tension headache versus dehydration Narrative Course Patient is a 37-year-old female comes in complaining of severe headache. Exam shows no neurologic abnormalities. IV established, labs sent. Labs show no acute abnormalities. Given Compazine, Benadryl, Toradol, IV fluids. She reports feeling better. She will be discharged with a prescription for Fioricet. She is advised follow-up with a primary doctor. Given a prescription for her amlodipine. Advised return as needed for any worsening symptoms. Diagnosis Primary Impression: Headache Qualified Codes: R51 - Headache Patient Instructions: Acute Headache (ED), General Instructions Additional Instructions: Take Tylenol or ibuprofen as needed for pain. You can take a Fioricet as needed for severe headache. Take your blood pressure medication daily. Follow- up with a primary doctor. Return to the ED as needed for any worsening symptoms. Scripts Vmtmijiheh-Uejdwoorwbevq-Umnafxpg (Fioricet) 50-300-40 Mg Cap 1 CAP PO Q4H Y for HEADACHE, #10 CAP 0 Refills Prov: Courtney Waters MD 09/07/17 Amlodipine (Amlodipine) 5 Mg Tab 5 MG PO DAILY for Blood Pressure Management, #30 TAB 0 Refills Prov: Courtney Waters MD 09/07/17 Disposition: 01 DISCHARGE HOME Condition: Stable Courtney Waters MD Sep 07, 2017 13:23
== END 2017-09-07 14:20 | disposition home or self-care (01) ==
LOC: NEPD 10:18
DX: R51 Headache (principal); R11.2 Nausea with vomiting, unspecified; M32.9 Systemic lupus erythematosus, unspecified; J44.9 Chronic obstructive pulmonary disease, unspecified; I10 Essential (primary) hypertension; Z79.899 Other long term (current) drug therapy
CPT/HCPCS: 80053; 85025; 96374; 96375; 99284; J0780; J1200; J1885; J7030